=== PATIENT | male | born 1970 | race African-American/Black ===

== ENCOUNTER 2022-01-27 16:17 | Emergency (ER) | payer BC ==
[~2022-01-27] VITALS: Ht 200.7 cm; Wt 120.2 kg
[2022-01-27] MEDS ORDERED: PREDNISONE 20 MG TAB PO ONE (19:00)
[2022-01-27] MEDS ORDERED: PREDNISONE50 MG PO (19:05)
[2022-01-27] MEDS ORDERED: PREDNISONE 20 MG TAB ONE (19:19)
== END 2022-01-27 19:32 | disposition home or self-care (01) ==
LOC: FSED 16:33
DX: M54.32 Sciatica, left side (principal); I10 Essential (primary) hypertension; E11.9 Type 2 diabetes mellitus without complications; Z85.47 Personal history of malignant neoplasm of testis
CPT/HCPCS: 36415; 82948; 99283; J7512

== ENCOUNTER 2024-03-21 21:37 | Inpatient (IN) | payer BC ==
[~2024-03-21] VITALS: Ht 200.7 cm; Wt 124.7 kg
[~2024-03-21 21:37] MED LIST: DULOXETINE HCL20 MG PO; GABAPENTIN600 MG PO; HYDROXYZINE HCL25 MG PO; LOSARTAN POTASS50 MG PO; PANTOPRAZOLE SO40 MG PO; PREDNISONE50 MG PO; PROTONIX20 MG PO
[2024-03-21 22:34] VITALS: TEMP 98.6
[2024-03-21 23:07] LABS: BASOPHILS % 0.2 % (0.0-1.0); EOSINOPHILS # (AUTO) 0.1 (0.0-0.4); EOSINOPHILS % 2.2 % (0.0-6.0); HEMOGLOBIN 11.5 g/dL (14.0-18.0); LYMPHOCYTES # (AUTO) 2.1 (1.0-3.2); LYMPHOCYTES % 34.1 % (18.0-39.1); MEAN CORPUSCULAR HEMOGLOBIN 30.3 pg (28-32); MEAN CORPUSCULAR HGB CONC 31.9 g/dL (31-35); MEAN CORPUSCULAR VOLUME 94.7 fL (81-99); MONOCYTES # (AUTO) 0.4 (0.2-0.8); NEUTROPHILS # (AUTO) 3.5 (2.1-6.9); NEUTROPHILS % 57.2 % (38.7-80.0); PLATELET COUNT 396 x10e3/uL (140-360); RED CELL DISTRIBUTION WIDTH 14.3 % (11.7-14.4); WHITE BLOOD COUNT 6.02 x10e3/uL (4.8-10.8)
[2024-03-21 23:24] LABS: ALBUMIN 3.5 g/dL (3.5-5.0); ALBUMIN/GLOBULIN RATIO 0.9 (0.8-2.0); ANION GAP 15.9 mmol/L (8-16); BILIRUBIN,TOTAL 0.3 mg/dL (0.2-1.2); CALCIUM 9.7 mg/dL (8.4-10.2); CREATININE, SERUM 1.58 mg/dL (0.72-1.25); POTASSIUM 3.9 mmol/L (3.5-5.1); TOTAL PROTEIN 7.5 g/dL (6.5-8.1)
[2024-03-21] MEDS ORDERED: DEXTROSE 50% SYRINGE 50 ML IV PRN (23:30)
[2024-03-21] MEDS: SODIUM CHLORIDE 0.9% 1000ML 1,000 ML IV SCH (23:40)
[2024-03-21 23:47] VITALS: PULSE 81; RESP 19
[2024-03-22] VITALS (7 sets, daily range): BP systolic 138–154; BP diastolic 77–97; PULSE 65–88; RESP 18–20; TEMP 97.6–98.7; O2SAT 96–100
[2024-03-22] MEDS: SODIUM CHLORIDE 0.9% 1000ML 1,000 ML IV STA (00:04)
[2024-03-22] MEDS: Clindamycin INJ 300 MG/50 ML 50 ML IV SCH (01:21)
[2024-03-22] MEDS: Morphine 4mg INJECTION 4 MG/ML INJ IV PRN (02:38)
[2024-03-22] MEDS: ONDANSETRON HCL INJ 2MG/ML 2ML 2 MG/ML VIAL IV PRN (02:39)
[2024-03-22 07:02] LABS: BASOPHILS % 0.4 % (0.0-1.0); EOSINOPHILS # (AUTO) 0.1 (0.0-0.4); EOSINOPHILS % 2.1 % (0.0-6.0); HEMATOCRIT 32.5 % (38.2-49.6); HEMOGLOBIN 10.6 g/dL (14.0-18.0); LYMPHOCYTES # (AUTO) 2.4 (1.0-3.2); LYMPHOCYTES % 41.7 % (18.0-39.1); MEAN CORPUSCULAR HEMOGLOBIN 30.6 pg (28-32); MEAN CORPUSCULAR HGB CONC 32.6 g/dL (31-35); MEAN CORPUSCULAR VOLUME 93.9 fL (81-99); MONOCYTES # (AUTO) 0.5 (0.2-0.8); MONOCYTES % 7.9 % (4.4-11.3); NEUTROPHILS # (AUTO) 2.7 (2.1-6.9); NEUTROPHILS % 47.4 % (38.7-80.0); PLATELET COUNT 332 x10e3/uL (140-360); RED BLOOD COUNT 3.46 x10e6/uL (4.3-5.7); RED CELL DISTRIBUTION WIDTH 14.3 % (11.7-14.4); WHITE BLOOD COUNT 5.71 x10e3/uL (4.8-10.8)
[2024-03-22 07:28] LABS: ALBUMIN 3.1 g/dL (3.5-5.0); ALBUMIN/GLOBULIN RATIO 0.9 (0.8-2.0); ANION GAP 13.6 mmol/L (8-16); BILIRUBIN,TOTAL 0.2 mg/dL (0.2-1.2); CALCIUM 8.6 mg/dL (8.4-10.2); CREATININE, SERUM 1.45 mg/dL (0.72-1.25); POTASSIUM 3.6 mmol/L (3.5-5.1); TOTAL PROTEIN 6.6 g/dL (6.5-8.1)
[2024-03-22] MEDS: INSULIN REGULAR, HUMAN 100 UNIT/1 ML SQ SCH (08:39)
[2024-03-22] MEDS: PANTOPRAZOLE SOD 40 MG TABEC PO SCH (17:45)
[2024-03-23] VITALS (7 sets, daily range): BP systolic 140–179; BP diastolic 81–96; PULSE 61–72; RESP 11–20; TEMP 97.7–98.9; O2SAT 95–99
[2024-03-23] MEDS ORDERED: FENTANYL CITRATE/PF 100MCG/2 ML INJ ONE (11:39)
[2024-03-23] MEDS ORDERED: PROPOFOL IV EMULSION 10 MG/ML 20 ML VIAL ONE (12:08)
[2024-03-23] MEDS ORDERED: METOCLOPRAMIDE HCL 10 MG/2ML VIAL ONE (12:08)
[2024-03-23] MEDS ORDERED: ACETAMINOPHEN 1000 MG/100 ML IV ONE (12:08)
[2024-03-23] MEDS ORDERED: LIDOCAINE HCL 2% LOCAL INJ 5 ML SDV VIAL INJ ONE (12:08)
[2024-03-23] MEDS ORDERED: ONDANSETRON HCL INJ 2MG/ML 2ML 2 MG/ML VIAL ONE (12:08)
[2024-03-23] MEDS ORDERED: SEVOFLURANE INHAL SOLN 250 ML PEN BTL ONE (12:08)
[2024-03-23] MEDS: LOSARTAN POTASSIUM 25 MG TAB PO SCH (20:32)
[2024-03-24] VITALS (8 sets, daily range): BP systolic 143–176; BP diastolic 70–98; PULSE 58–87; RESP 17–21; TEMP 97.6–98.7; O2SAT 94–100
[2024-03-24] MEDS ORDERED: MECLIZINE HCL12.5 MG PO (21:18)
[2024-03-24] MEDS: SODIUM CHLORIDE 0.9% 250ML 250 ML ONE (21:29)
[2024-03-24] MEDS: GABAPENTIN 300 MG CAP PO SCH (22:20)
[2024-03-24] MEDS: MECLIZINE HCL 12.5 MG TAB PO PRN (22:20)
[2024-03-24] MEDS: HYDRALAZINE HCL 20 MG/ML VIAL IV PRN (23:30)
[2024-03-25] VITALS: BP 180/99; PULSE 71; RESP 18; TEMP 98.6; O2SAT 97
[2024-03-25 04:00] VITALS: BP 160/96; PULSE 62; RESP 17; TEMP 98.6; O2SAT 99
[2024-03-25] MEDS: ACETAMINOPHEN 325 MG TAB PO PRN (06:50)
[2024-03-25 07:59] VITALS: BP 149/82; PULSE 78; RESP 17; TEMP 98.1; O2SAT 98
[2024-03-25 08:12] LABS: ANION GAP 11.5 mmol/L (8-16); CALCIUM 9.4 mg/dL (8.4-10.2); CREATININE, SERUM 1.18 mg/dL (0.72-1.25); POTASSIUM 3.5 mmol/L (3.5-5.1)
[2024-03-25 08:45] VITALS: BP 149/84; PULSE 78; RESP 17; TEMP 98.1; O2SAT 98
[2024-03-25 11:25] VITALS: BP 142/79; PULSE 72; RESP 17; TEMP 98.6; O2SAT 100
[2024-03-25] MEDS: DULOXETINE HCL 30 MG DELAYED RELEASE PO SCH (12:10)
[2024-03-25] MEDS: MECLIZINE HCL 12.5 MG TAB PO PRN (12:10)
[2024-03-25] MEDS ORDERED: METFORMIN HCL850 MG PO (12:29)
[2024-03-25] MEDS ORDERED: OZEMPIC1 MG/0.71 SC (12:29)
[2024-03-25] MEDS ORDERED: ALOGLIPTIN25 MG PO (12:29)
[2024-03-25] MEDS ORDERED: JARDIANCE25 MG PO (12:29)
[2024-03-25] MEDS ORDERED: ATORVASTATIN CA20 MG PO (12:29)
[2024-03-25] MEDS: OXYCODONE HCL 10 MG TAB CR PO PRN (13:14)
[2024-03-25 15:57] VITALS: BP_SYST 148; BP_SYST 158; BP_DIAS 79; BP_DIAS 91; PULSE 70; PULSE 74; RESP 17; TEMP 98.1; O2SAT 100
[2024-03-25] MEDS: ACETAMIN/BUTALBITAL/CAFFEINE TAB PO PRN (17:31)
[2024-03-25] MEDS: ATORVASTATIN 40 MG TAB PO SCH (21:03)
[2024-03-26] VITALS (7 sets, daily range): BP systolic 132–169; BP diastolic 66–99; PULSE 68–78; RESP 17–20; TEMP 97.7–98.6; O2SAT 98–100
[2024-03-26] MEDS ORDERED: KETOROLAC TROMETHAMINE 30 MG/ML VIAL IV ONE (00:30)
[2024-03-26 06:32] LABS: BASOPHILS % 0.3 % (0.0-1.0); EOSINOPHILS # (AUTO) 0.3 (0.0-0.4); EOSINOPHILS % 3.9 % (0.0-6.0); HEMOGLOBIN 10.6 g/dL (14.0-18.0); LYMPHOCYTES # (AUTO) 2.4 (1.0-3.2); LYMPHOCYTES % 37.4 % (18.0-39.1); MEAN CORPUSCULAR HGB CONC 33.1 g/dL (31-35); MEAN CORPUSCULAR VOLUME 93.6 fL (81-99); MONOCYTES # (AUTO) 0.5 (0.2-0.8); MONOCYTES % 7.8 % (4.4-11.3); NEUTROPHILS # (AUTO) 3.2 (2.1-6.9); NEUTROPHILS % 50.3 % (38.7-80.0); PLATELET COUNT 293 x10e3/uL (140-360); RED BLOOD COUNT 3.42 x10e6/uL (4.3-5.7); WHITE BLOOD COUNT 6.44 x10e3/uL (4.8-10.8)
[2024-03-26 07:11] LABS: ANION GAP 11.1 mmol/L (8-16); CALCIUM 8.7 mg/dL (8.4-10.2); CREATININE, SERUM 1.21 mg/dL (0.72-1.25); MAGNESIUM 1.9 MG/DL (1.3-2.1); PHOSPHORUS 4.3 MG/DL (2.3-4.7); POTASSIUM 4.1 mmol/L (3.5-5.1)
[2024-03-26] MEDS ORDERED: ONDANSETRON HCL 4 MG ORAL DISINTEGRATING TAB PO PRN (11:15)
[2024-03-26] MEDS: HYDROMORPHONE 1MG/1ML INJ IV PRN (12:57)
[2024-03-27 08:00] VITALS: BP 166/99; PULSE 80; RESP 17; TEMP 98.3; O2SAT 97
[2024-03-27 08:41] VITALS: BP 169/81
[2024-03-27] MEDS ORDERED: MECLIZINE HCL12.5 MG PO (08:44)
[2024-03-27] MEDS ORDERED: FIORICET 50-301 EACH PO (08:44)
[2024-03-27] MEDS ORDERED: ONDANSETRON ODT4 MG PO (08:44)
== END 2024-03-27 10:33 | disposition home or self-care (01) | DRG 629 ==
LOC: ER 22:35 → ERHOLD 22:45 → ICU 23:57 → MED/SURG2 03-24 10:26
PROVIDERS: ADMIT Internal Medicine; ATTEND Internal Medicine
PROC: 0HTRXZZ Resection of Toe Nail, External Approach (ICD-10-PCS; 2024-03-23)
PROC: 0QBP0ZZ Excision of Left Metatarsal, Open Approach (ICD-10-PCS; principal; 2024-03-23 09:16)
PROC: 02HV33Z Insertion of Infusion Device into Superior Vena Cava, Percutaneous Approach (ICD-10-PCS; 2024-03-24)
DX: E11.621 Type 2 diabetes mellitus with foot ulcer (principal); L02.612 Cutaneous abscess of left foot; M86.9 Osteomyelitis, unspecified; L03.116 Cellulitis of left lower limb; S92.402B Displaced unspecified fracture of left great toe, initial encounter for open fracture; E11.69 Type 2 diabetes mellitus with other specified complication; E11.51 Type 2 diabetes mellitus with diabetic peripheral angiopathy without gangrene; E11.40 Type 2 diabetes mellitus with diabetic neuropathy, unspecified; E11.65 Type 2 diabetes mellitus with hyperglycemia; L97.529 Non-pressure chronic ulcer of other part of left foot with unspecified severity; L03.032 Cellulitis of left toe; I70.203 Unspecified atherosclerosis of native arteries of extremities, bilateral legs; I10 Essential (primary) hypertension; E78.49 Other hyperlipidemia; R19.7 Diarrhea, unspecified; M54.9 Dorsalgia, unspecified; R42 Dizziness and giddiness; Z11.52 Encounter for screening for COVID-19; Z90.79 Acquired absence of other genital organ(s); Z85.47 Personal history of malignant neoplasm of testis; W22.8XXA Striking against or struck by other objects, initial encounter
CPT/HCPCS: 36415; 36569; 71045; 76000; 80048; 80053; 82948; 83605; 83735; 84100; 85025; 87040; 87071; 87075; 87205; 87324; 87449; 88304; 88305; 88311; 93925; 99252; 99284; J0360; J1170; J2001; J2270; J2405; J2543; J2765; J7030; J7050; U0002

== ENCOUNTER → 2024-04-05 | Outpatient (REF) | payer BC ==
[~2024-04-05] MED LIST changes: +ALOGLIPTIN25 MG PO; +ATORVASTATIN CA20 MG PO; +FIORICET 50-301 EACH PO; +JARDIANCE25 MG PO; +MECLIZINE HCL12.5 MG PO; +METFORMIN HCL850 MG PO; +ONDANSETRON ODT4 MG PO; +OZEMPIC1 MG/0.71 SC
== END ==
LOC: WCC 15:36
PROVIDERS: ATTEND Nurse Practitioner Family
DX: E11.621 Type 2 diabetes mellitus with foot ulcer (principal); M86.172 Other acute osteomyelitis, left ankle and foot; L97.524 Non-pressure chronic ulcer of other part of left foot with necrosis of bone
CPT/HCPCS: 36415; 82948

== ENCOUNTER → 2024-04-09 | Outpatient (REF) | payer BC | LOC: RAD 09:10 | PROVIDERS: ATTEND Nurse Practitioner Family | DX: Z01.818 Encounter for other preprocedural examination (principal); E11.621 Type 2 diabetes mellitus with foot ulcer; L97.524 Non-pressure chronic ulcer of other part of left foot with necrosis of bone | CPT/HCPCS: 71046; 93005; 93306 ==

== ENCOUNTER → 2024-04-11 | Outpatient (REF) | payer BC | LOC: WCC 13:13 | PROVIDERS: ATTEND Nurse Practitioner Family | DX: E11.621 Type 2 diabetes mellitus with foot ulcer (principal); M86.172 Other acute osteomyelitis, left ankle and foot; L97.524 Non-pressure chronic ulcer of other part of left foot with necrosis of bone ==

== ENCOUNTER → 2024-04-18 | Outpatient (REF) | payer BC ==
[~2024-04-18] MED LIST changes: +MUPIROCIN 2% OINT 22 GM TUBE ONE
== END ==
LOC: WCC 14:34
PROVIDERS: ATTEND Nurse Practitioner Family
DX: E11.621 Type 2 diabetes mellitus with foot ulcer (principal); M86.172 Other acute osteomyelitis, left ankle and foot; L97.524 Non-pressure chronic ulcer of other part of left foot with necrosis of bone
CPT/HCPCS: 36415; 82948; 99213; G0277

== ENCOUNTER → 2024-04-19 | Outpatient (REF) | payer BC ==
[~2024-04-19] MED LIST changes: -MUPIROCIN 2% OINT 22 GM TUBE ONE
== END ==
LOC: WCC 09:09
PROVIDERS: ATTEND Nurse Practitioner Family
DX: E11.621 Type 2 diabetes mellitus with foot ulcer (principal); M86.172 Other acute osteomyelitis, left ankle and foot; L97.524 Non-pressure chronic ulcer of other part of left foot with necrosis of bone
CPT/HCPCS: 99213; G0277

== ENCOUNTER → 2024-04-23 | Outpatient (REF) | payer BC ==
[~2024-04-23] MED LIST changes: +MUPIROCIN 2% OINT 22 GM TUBE ONE
== END ==
LOC: WCC 08:07
PROVIDERS: ATTEND Plastic Surgery
DX: E11.621 Type 2 diabetes mellitus with foot ulcer (principal); L97.524 Non-pressure chronic ulcer of other part of left foot with necrosis of bone
CPT/HCPCS: 99212; G0277

== ENCOUNTER → 2024-04-24 | Outpatient (REF) | payer BC ==
[~2024-04-24] MED LIST changes: +MINERAL OIL/PETROLAT/GLYCERI 6OZ BTL ONE
== END ==
LOC: WCC 12:00
PROVIDERS: ATTEND Nurse Practitioner Family
DX: E11.621 Type 2 diabetes mellitus with foot ulcer (principal); L97.524 Non-pressure chronic ulcer of other part of left foot with necrosis of bone
CPT/HCPCS: 36415; 82948; 99213; G0277

== ENCOUNTER → 2024-04-26 | Outpatient (REF) | payer BC | LOC: WCC 13:33 | PROVIDERS: ATTEND Nurse Practitioner Family | DX: E11.621 Type 2 diabetes mellitus with foot ulcer (principal); L97.524 Non-pressure chronic ulcer of other part of left foot with necrosis of bone | CPT/HCPCS: 99213; G0277 ==

== ENCOUNTER → 2024-05-03 | Outpatient (REF) | payer BC ==
[~2024-05-03] MED LIST changes: +MEROPENEM1 GM IV; -MINERAL OIL/PETROLAT/GLYCERI 6OZ BTL ONE; -MUPIROCIN 2% OINT 22 GM TUBE ONE
== END ==
LOC: WCC 09:01
PROVIDERS: ATTEND Nurse Practitioner Family
DX: E11.621 Type 2 diabetes mellitus with foot ulcer (principal); L97.524 Non-pressure chronic ulcer of other part of left foot with necrosis of bone

== ENCOUNTER → 2024-05-04 | Day surgery (SDC) | payer BC ==
[2024-05-03 15:24] LABS: BASOPHILS % 0.4 % (0.0-1.0); EOSINOPHILS # (AUTO) 0.2 (0.0-0.4); EOSINOPHILS % 3.5 % (0.0-6.0); HEMATOCRIT 37.2 % (38.2-49.6); LYMPHOCYTES # (AUTO) 2.3 (1.0-3.2); LYMPHOCYTES % 50.5 % (18.0-39.1); MEAN CORPUSCULAR HEMOGLOBIN 30.7 pg (28-32); MEAN CORPUSCULAR HGB CONC 32.3 g/dL (31-35); MEAN CORPUSCULAR VOLUME 95.1 fL (81-99); MONOCYTES # (AUTO) 0.3 (0.2-0.8); MONOCYTES % 6.7 % (4.4-11.3); NEUTROPHILS # (AUTO) 1.8 (2.1-6.9); NEUTROPHILS % 38.9 % (38.7-80.0); PLATELET COUNT 216 x10e3/uL (140-360); RED BLOOD COUNT 3.91 x10e6/uL (4.3-5.7); RED CELL DISTRIBUTION WIDTH 13.2 % (11.7-14.4); WHITE BLOOD COUNT 4.63 x10e3/uL (4.8-10.8)
[2024-05-03 15:43] LABS: ANION GAP 15.4 mmol/L (8-16); CALCIUM 9.3 mg/dL (8.4-10.2); CREATININE, SERUM 1.75 mg/dL (0.72-1.25); POTASSIUM 4.4 mmol/L (3.5-5.1)
[~2024-05-04] MED LIST changes: +ACETAMINOPHEN 1000 MG/100 ML IV ONE; +EPHEDRINE SULFATE INJ 50 MG/ML VIAL ONE; +EPINEPHRINE HCL 1:1000 1ML 1 MG/ML AMP ONE; +FENTANYL CITRATE/PF 100MCG/2 ML INJ ONE; +LIDOCAINE HCL 2% LOCAL INJ 5 ML SDV VIAL INJ ONE; +METOCLOPRAMIDE HCL 10 MG/2ML VIAL ONE; +MIDAZOLAM HCL 2 MG/2 ML VIAL ONE; +ONDANSETRON HCL INJ 2MG/ML 2ML 2 MG/ML VIAL ONE; +PROPOFOL IV EMULSION 10 MG/ML 20 ML VIAL ONE; +ROPIVACAINE 0.5% 5 MG/ML 30 ML SDV ONE; +SEVOFLURANE INHAL SOLN 250 ML PEN BTL ONE
[2024-05-04] MEDS: LACTATED RINGER'S 1,000 ML ONE (08:15)
[2024-05-04 12:25] VITALS: BP 152/85; PULSE 70; RESP 17; O2SAT 98
== END | disposition home or self-care (01) ==
LOC: OR 07:37
PROVIDERS: ATTEND Podiatrist Foot Surgery
DX: M86.9 Osteomyelitis, unspecified (principal); M20.42 Other hammer toe(s) (acquired), left foot; S93.132A Subluxation of interphalangeal joint of left great toe, initial encounter; G47.33 Obstructive sleep apnea (adult) (pediatric); I10 Essential (primary) hypertension; E78.5 Hyperlipidemia, unspecified; E11.9 Type 2 diabetes mellitus without complications; C62.90 Malignant neoplasm of unspecified testis, unspecified whether descended or undescended; X58.XXXA Exposure to other specified factors, initial encounter; Z79.84 Long term (current) use of oral hypoglycemic drugs; Z79.85 Long-term (current) use of injectable non-insulin antidiabetic drugs; Z79.899 Other long term (current) drug therapy
CPT/HCPCS: 28124; 28675; 36415; 80048; 85025; 87071; 87075; 87205; 88305; 88311; 93005; J0131; J0171; J2001; J2250; J2405; J2704; J2765; J2795; J3010; J7121; V2790; 76000; 88304

== ENCOUNTER → 2024-05-10 | Outpatient (REF) | payer BC ==
[~2024-05-10] MED LIST changes: -ACETAMINOPHEN 1000 MG/100 ML IV ONE; -EPHEDRINE SULFATE INJ 50 MG/ML VIAL ONE; -EPINEPHRINE HCL 1:1000 1ML 1 MG/ML AMP ONE; -FENTANYL CITRATE/PF 100MCG/2 ML INJ ONE; -LIDOCAINE HCL 2% LOCAL INJ 5 ML SDV VIAL INJ ONE; -METOCLOPRAMIDE HCL 10 MG/2ML VIAL ONE; -MIDAZOLAM HCL 2 MG/2 ML VIAL ONE; -ONDANSETRON HCL INJ 2MG/ML 2ML 2 MG/ML VIAL ONE; -PROPOFOL IV EMULSION 10 MG/ML 20 ML VIAL ONE; -ROPIVACAINE 0.5% 5 MG/ML 30 ML SDV ONE; -SEVOFLURANE INHAL SOLN 250 ML PEN BTL ONE
== END ==
LOC: WCC 11:32
PROVIDERS: ATTEND Nurse Practitioner Family
DX: E11.621 Type 2 diabetes mellitus with foot ulcer (principal); M86.172 Other acute osteomyelitis, left ankle and foot; L97.524 Non-pressure chronic ulcer of other part of left foot with necrosis of bone
CPT/HCPCS: 36415; 82948

== ENCOUNTER → 2024-05-11 | Outpatient (REF) | payer BC | LOC: WCC 13:49 | PROVIDERS: ATTEND Nurse Practitioner Family | DX: E11.621 Type 2 diabetes mellitus with foot ulcer (principal); L97.524 Non-pressure chronic ulcer of other part of left foot with necrosis of bone | CPT/HCPCS: 36415; 82948; G0277 ==

== ENCOUNTER → 2024-05-14 | Outpatient (REF) | payer BC | LOC: WCC 08:00 | PROVIDERS: ATTEND Nurse Practitioner Family | DX: E11.621 Type 2 diabetes mellitus with foot ulcer (principal); L97.524 Non-pressure chronic ulcer of other part of left foot with necrosis of bone ==

== ENCOUNTER → 2024-05-15 | Outpatient (REF) | payer BC ==
[~2024-05-15] MED LIST changes: +MINERAL OIL/PETROLAT/GLYCERI 6OZ BTL ONE
== END ==
LOC: WCC 11:37
PROVIDERS: ATTEND Nurse Practitioner Family
DX: E11.621 Type 2 diabetes mellitus with foot ulcer (principal); L97.524 Non-pressure chronic ulcer of other part of left foot with necrosis of bone
CPT/HCPCS: 36415; 82948; 99213; G0277

== ENCOUNTER → 2024-05-31 | Outpatient (REF) | payer BC ==
[~2024-05-31] MED LIST changes: -MINERAL OIL/PETROLAT/GLYCERI 6OZ BTL ONE
== END ==
LOC: WCC 14:21
PROVIDERS: ATTEND Nurse Practitioner Family
DX: E11.621 Type 2 diabetes mellitus with foot ulcer (principal); M86.172 Other acute osteomyelitis, left ankle and foot; L97.524 Non-pressure chronic ulcer of other part of left foot with necrosis of bone
CPT/HCPCS: 36415; 82948; 99213; G0277

== ENCOUNTER → 2024-06-04 | Outpatient (REF) | payer BC ==
[~2024-06-04] MED LIST changes: +MINERAL OIL/PETROLAT/GLYCERI 6OZ BTL ONE
== END ==
LOC: WCC 09:40
PROVIDERS: ATTEND Nurse Practitioner Family
DX: E11.621 Type 2 diabetes mellitus with foot ulcer (principal); L97.524 Non-pressure chronic ulcer of other part of left foot with necrosis of bone
CPT/HCPCS: 99213; G0277

== ENCOUNTER → 2024-06-08 | Outpatient (REF) | payer BC ==
[~2024-06-08] MED LIST changes: -MINERAL OIL/PETROLAT/GLYCERI 6OZ BTL ONE
== END ==
LOC: WCC 10:03
PROVIDERS: ATTEND Nurse Practitioner Family
DX: E11.621 Type 2 diabetes mellitus with foot ulcer (principal); L97.524 Non-pressure chronic ulcer of other part of left foot with necrosis of bone
CPT/HCPCS: 36415 ×2; 82948 ×2; G0277

== ENCOUNTER → 2024-06-12 | Outpatient (REF) | payer BC | LOC: WCC 11:04 | PROVIDERS: ATTEND Nurse Practitioner Family | DX: E11.621 Type 2 diabetes mellitus with foot ulcer (principal); L97.524 Non-pressure chronic ulcer of other part of left foot with necrosis of bone ==

== ENCOUNTER → 2024-06-13 | Outpatient (REF) | payer BC | LOC: WCC 16:20 | PROVIDERS: ATTEND Nurse Practitioner Family | DX: E11.621 Type 2 diabetes mellitus with foot ulcer (principal); L97.524 Non-pressure chronic ulcer of other part of left foot with necrosis of bone | CPT/HCPCS: 36415; 82948; G0277 ==

== ENCOUNTER → 2024-06-14 | Outpatient (REF) | payer BC | LOC: WCC 08:00 | PROVIDERS: ATTEND Nurse Practitioner Family | DX: E11.621 Type 2 diabetes mellitus with foot ulcer (principal); L97.524 Non-pressure chronic ulcer of other part of left foot with necrosis of bone ==

== ENCOUNTER → 2024-06-19 | Outpatient (REF) | payer BC | LOC: WCC 08:24 | PROVIDERS: ATTEND Nurse Practitioner Family | DX: E11.621 Type 2 diabetes mellitus with foot ulcer (principal); L97.524 Non-pressure chronic ulcer of other part of left foot with necrosis of bone | CPT/HCPCS: 36415; 82948; 99213; G0277 ==

== ENCOUNTER → 2024-06-21 | Outpatient (REF) | payer BC | LOC: WCC 10:24 | PROVIDERS: ATTEND Nurse Practitioner Family | DX: E11.621 Type 2 diabetes mellitus with foot ulcer (principal); L97.524 Non-pressure chronic ulcer of other part of left foot with necrosis of bone ==

== ENCOUNTER → 2024-06-22 | Outpatient (REF) | payer BC | LOC: WCC 13:05 | PROVIDERS: ATTEND Nurse Practitioner Family | DX: E11.621 Type 2 diabetes mellitus with foot ulcer (principal); M86.172 Other acute osteomyelitis, left ankle and foot; L97.524 Non-pressure chronic ulcer of other part of left foot with necrosis of bone | CPT/HCPCS: 99213; G0277 ==

== ENCOUNTER → 2024-06-25 | Outpatient (REF) | payer BC | LOC: WCC 08:01 | PROVIDERS: ATTEND Plastic Surgery | DX: E11.621 Type 2 diabetes mellitus with foot ulcer (principal); L97.524 Non-pressure chronic ulcer of other part of left foot with necrosis of bone ==